=== PATIENT | female | born 1970 | race Caucasian/White ===

== ENCOUNTER 2024-11-05 16:04 | Emergency (ER) | payer OTHER, SELFPAY ==
[2024-11-05 16:08] VITALS: BP 164/104
--- NOTE | 2024-11-05 16:57 | ED.GENMED ---
History of Present Illness
General
Chief Complaint: Oral/Mouth Problem
Time Seen by Provider: 11/05/24 16:40
History of Present Illness
History of Present Illness:
54-year-old female presents to the emergency department for evaluation of right jaw swelling and pain. She has history of chronic recurrent dental infections due to poor dentition and due to insurance issues has not been able to establish dental
follow-up as of yet. She has been on doxycycline for several months for this but just finished her last dose yesterday. She also notes she has been having blood in the stool for the past month that she feels is related to the antibiotic usage.
Review of Systems
Review of Systems
Allergies reviewed?: Yes
All Other Systems: ROS reviewed and negative except as documented in HPI and ROS
Phy Exam
Physical Exam
Physical Exam:
GEN: Well appearing, NAD, WDWN
HEENT: Oral mucosa moist, no scleral icterus. Significant swelling of the right mandibular face extending into the buccal mucosa, no palpable fluctuance, severely abnormal dentition with numerous caries
Cardiac: Regular rate
Lung: No respiratory distress, no tachypnea
MSK: No gross deformity or injuries
Skin: Good color, no pallor or jaundice, no rashes
Neuro: AO x3, moves all extremities freely
Psych: Calm, cooperative
Course
Orders/Labs/Results
Orders:
Orders
11/05/24 16:54
Oxycodone [Roxicodone] 5 mg PO NOW STA
11/05/24 17:10
Complete Blood Count/With Diff Urgent
Comprehensive Metabolic Panel Urgent
11/05/24 18:18
MetroNIDAZOLE [Flagyl] 500 mg PO NOW STA
11/05/24 18:22
Cefuroxime Axetil [Ceftin] 500 mg PO NOW STA
Abnormal Lab Results
11/05/24
17:10
MCV 79.1 L fL
(81.0-99.0)
MCH 25.8 L pg
(27.0-31.0)
MCHC 32.6 L g/dL
(33.0-37.0)
RDW 16.1 H %
(11.5-14.5)
Abs Immat Gran (auto) 0.1 H 10^3/uL
(0-0.05)
Immature Gran % 0.6 H %
(0-0.5)
Glucose 141 H mg/dl
(70-99)
11/05/24 17:10
11/05/24 17:10
Vital Signs
Initial and Last Documented VS:
Initial Vital Signs
Temp Pulse Resp BP Pulse Ox
98.4 F 98 18 164/104 99
11/05/24 16:08 11/05/24 16:08 11/05/24 16:08 11/05/24 16:08 11/05/24 16:08
Last Documented Vital Signs
Temp Pulse Resp BP Pulse Ox
98.4 F 84 20 138/67 99
11/05/24 16:08 11/05/24 18:41 11/05/24 18:41 11/05/24 18:41 11/05/24 18:41
MDM/Problems Addressed
MDM/Problems Addressed:
Patient with recurrent odontogenic infections due to poor dental health. She has numerous antibiotic allergies limiting options for treatment, she has been on long-term doxycycline which I do not feel is adequate coverage for oral alex, will place
on cefuroxime and metronidazole, provided with list of local dental options for follow-up
*Critical Care Note
Total Time (30-74mins, 75-104mins- exclusive of procedures): Not Applicable
ED Attending Note
-
Portions of this chart may have been created with voice recognition software.� Occasional wrong word or��sound alike� substitutions may have occurred due to the inherent limitations of voice recognition software.
Discharge Plan
Departure
Patient Disposition: Home (Routine Discharge)
Date of Disposition: 11/05/24
Time of Disposition: 18:18
Patient with high blood pressure during this ER visit?: No
Discharge Problem:
Dental infection
Instructions: Tooth Abscess (DC)
Prescriptions:
New
cefuroxime axetil 500 mg tablet
500 mg PO Q12H Qty: 20 0RF
metronidazole 500 mg tablet
500 mg PO Q8H 10 Days Qty: 30 0RF
oxycodone-acetaminophen [Percocet] 5-325 mg tablet
1 tab PO Q6HPRN PRN (Reason: pain) Qty: 8 0RF
Referrals:
UNKNOWN - PT DOES,NOT KNOW [Family Provider] -
Activity Restrictions/Additional Instructions:
Reduced-Fee Dental Clinics
[facility]: [phone] call for appt. No walk ins
[facility]:
[facility]: [phone]
[facility] [phone]
[facility]: . No walk ins
[facility]: [phone]
[facility]: [phone]
[facility]: 1-
[facility]: [phone]
[facility]: [phone]
[facility] Sliding scale, Free for uninsured
[facility]: [phone]
[facility] ex [phone]
[address] [facility] [place] [address]
[facility]:
[facility]:
Interventions
Interventions:
*Risk Screen - Suicide Last Done: 11/05/24 18:00
*General Assessment Last Done: 11/05/24 18:00
*Neglect/Abuse Screening Last Done: 11/05/24 18:00
*ED COVID-19 Vaccine History Last Done: 11/05/24 18:00
*Nursing Disposition Last Done: 11/05/24 18:41
Discharge Date and Time
Discharge Date/Time: 11/05/24 18:42
Print Language: WELSH
[2024-11-05] MEDS: ROXICODONE 5 MG PO (17:14)
[2024-11-05 17:20] LABS: % Basophils 0.7 % (0-2); % Eosinophils 2.7 % (0-6); % Immature Granulocytes 0.6 % (0-0.5); % Lymphocytes 32.4 % (20.5-51.1); % Monocytes 4.6 % (1.7-9.3); Absolute Basophils 0.1 10^3/uL (0-0.2); Absolute Eosinophils 0.2 10^3/uL (0-0.7); Absolute Immature Granulocytes 0.1 10^3/uL (0-0.05); Absolute Lymphocytes 2.8 10^3/uL (1.2-3.4); Absolute Monocytes 0.4 10^3/uL (0.1-0.6); Hematocrit 37.1 % (37.0-47.0); Hemoglobin 12.1 g/dL (12.0-16.0); Mean Corp Hgb Conc. 32.6 g/dL (33.0-37.0); Mean Corpuscular Hgb 25.8 pg (27.0-31.0); Mean Corpuscular Volume 79.1 fL (81.0-99.0); Mean Platelet Volume 8.9 fL (7.4-10.4); Nucleated Red Blood Cells % 0 %; Platelet Count 348 10^3/uL (130-400); Red Blood Cell Count 4.69 10^6/uL (4.20-5.40); Red Cell Dist. Width 16.1 % (11.5-14.5); White Blood Cell Count 8.5 10^3/uL (4.8-10.8)
[2024-11-05 17:33] LABS: ALT (SGPT) 25 U/L (0-35); AST (SGOT) 22 U/L (14-36); Albumin 4.1 g/dl (3.5-5.0); Alkaline Phosphatase 66 U/L (38-126); Blood Urea Nitrogen 9 mg/dl (7-17); Calcium 9.1 mg/dl (8.4-10.2); Carbon Dioxide 27 mmol/L (22-30); Chloride 105 mmol/L (98-107); Glucose 141 mg/dl (70-99); Potassium 4.2 mmol/L (3.5-5.1); Sodium 139 mmol/L (135-145); Total Bilirubin 0.8 mg/dl (0.2-1.3); Total Protein 6.8 g/dl (6.3-8.2); eGFR > 60.00
[2024-11-05] MEDS: CEFTIN 500 MG PO (18:31)
[2024-11-05] MEDS: FLAGYL 500 MG PO (18:32)
[2024-11-05 18:41] VITALS: BP 138/67
== END 2024-11-05 18:42 | disposition home or self-care (01) ==
LOC: EMR 16:04
PROVIDERS: Physician Assistant; EMERGENCY PHYSICIAN Emergency Medicine
DX: K04.7 Periapical abscess without sinus (principal)
CPT/HCPCS: 99283; 80053; 85025